=== PATIENT | female | born 1990 | race Caucasian/White ===

== ENCOUNTER 2023-12-01 08:06 | Emergency (ER) | payer SELFPAY ==
[2023-12-01 08:46] LABS: APPEARANCE,URINE CLEAR; BILIRUBIN,URINE NEGATIVE (NEGATIVE); COLOR,URINE YELLOW; GLUCOSE,URINE NEGATIVE (NEGATIVE); KETONES,URINE NEGATIVE (NEGATIVE); LEUKOCYTE ESTERASE,URINE NEGATIVE (NEGATIVE); NITRITE,URINE NEGATIVE (NEGATIVE); OCCULT BLOOD,URINE NEGATIVE (NEGATIVE); PROTEIN,URINE NEGATIVE (NEGATIVE)
[2023-12-01 08:55] LABS: RBC,URINE 0-1 (0-2/HPF)
[2023-12-01 08:56] LABS: BACTERIA,URINE 1+ (NEGATIVE); EPITHELIAL CELLS,URINE FEW (NONE-FEW); WBC,URINE 0-1 (0-5/HPF)
[2023-12-01 09:10] LABS: CORONAVIRUS COVID-19 NAA NEGATIVE (NEGATIVE); INFLUENZA A NAA NEGATIVE (NEGATIVE); INFLUENZA B NAA NEGATIVE (NEGATIVE); RESPIRATORY SYNCYTIAL VIR NAA NEGATIVE (NEGATIVE)
[2023-12-01] MEDS: Metoclopramide 10 MG/2 ML SDV IVPUSH ONE (10:36)
[2023-12-01] MEDS: Sodium Chloride 0.9% 10 ML Syringe FLUSH PRN (10:36)
[2023-12-01] MEDS: Sodium Chloride 0.9% 2.5 ML Syringe FLUSH PRN (10:36)
[2023-12-01] MEDS: Sodium Chloride 0.9% 1,000 ML IV ONE (10:36)
== END 2023-12-01 12:05 | disposition home or self-care (01) ==
LOC: MW.ED 08:06
DX: O20.9 Hemorrhage in early pregnancy, unspecified (principal); O98.511 Other viral diseases complicating pregnancy, first trimester; B34.9 Viral infection, unspecified; Z3A.01 Less than 8 weeks gestation of pregnancy
CPT/HCPCS: 0241U; 36415; 76801; 81001; 84702; 86900; 86901; 87086; 96361; 96374; 99284; J2765; J3490; J7030

== ENCOUNTER 2024-01-25 08:05 | Day surgery (SDC) | payer BC, MEDICAID ==
[~2024-01-25 08:05] MED LIST: Sodium Chloride 0.9% 10 ML Syringe FLUSH PRN; Sodium Chloride 0.9% 2.5 ML Syringe FLUSH PRN; Sodium Chloride 0.9% 20 ML SDV IV PRN; ceFAZolin 2 GM in Sodium Chloride 0.9% 50 ML IV ONE
[2024-01-25 08:28] LABS: HEMOGLOBIN 13.3 g/dL (12.0-16.0); MEAN CORPUSCULAR HEMOGLOBIN 31.4 pg (28.0-32.0); MEAN CORPUSCULAR VOLUME 89.6 fL (83.0-99.0); MEAN PLATELET VOLUME 11.9 fL (9.4-12.3); PLATELET COUNT,PLT 174 K/uL (150-400); RED BLOOD CELL COUNT 4.24 M/uL (4.10-5.30); WHITE BLOOD CELL COUNT,WBC 6.72 K/uL (3.9-11.3)
[2024-01-25] MEDS: Lactated Ringers 1,000 ML IV SCH (08:53)
[2024-01-25] MEDS ORDERED: fentaNYL 100 MCG/2 ML SDV ONE (09:12)
[2024-01-25] MEDS ORDERED: Ondansetron 4 MG/2 ML SDV ONE (09:27)
[2024-01-25] MEDS ORDERED: Ketamine HCL/NACL, ISO-OSM 50 MG/5 ML Syringe ONE (09:55)
== END 2024-01-25 11:00 | disposition home or self-care (01) ==
LOC: MW.SDS 08:05
PROVIDERS: ATTEND Obstetrics & Gynecology
DX: N88.3 Incompetence of cervix uteri (principal); F41.9 Anxiety disorder, unspecified; F17.290 Nicotine dependence, other tobacco product, uncomplicated; Z79.899 Other long term (current) drug therapy
CPT/HCPCS: 36415; 59320; 85027; J0131; J2405; J3010; J7120; J3490

== ENCOUNTER 2024-04-17 09:48 | Observation (INO) | payer BC, MEDICAID ==
[2024-04-17] MEDS: Betamethasone Acetate/Betamethasone Sod Phosphate 6 MG/1 ML MDV IM ONE (11:28)
[2024-04-17 12:45] LABS: CANDIDA DNA PROBE NEGATIVE (NEGATIVE); GARDNERELLA DNA PROBE NEGATIVE (NEGATIVE); TRICHOMONAS DNA PROBE NEGATIVE (NEGATIVE)
== END 2024-04-18 07:10 | disposition home or self-care (01) ==
LOC: MW.OBCHECK 09:48 → MW.OB 09:51 → MW.OBCHECK 10:40 → MW.OB 18:54 → MW.OBCHECK 04-18 06:08
PROVIDERS: ADMIT Obstetrics & Gynecology; ATTEND Obstetrics & Gynecology
DX: O32.1XX0 Maternal care for breech presentation, not applicable or unspecified (principal); O34.32 Maternal care for cervical incompetence, second trimester; O34.42 Maternal care for other abnormalities of cervix, second trimester; O99.212 Obesity complicating pregnancy, second trimester; E66.8 Other obesity; O09.292 Supervision of pregnancy with other poor reproductive or obstetric history, second trimester; O44.51 Low lying placenta with hemorrhage, first trimester
CPT/HCPCS: 59025; 76815; 76817; 87480; 87510; 87660; G0378; J0702

== ENCOUNTER 2025-04-19 16:11 | Emergency (ER) | payer BC ==
[2025-04-19] MEDS ORDERED: Sodium Chloride 0.9% 10 ML Syringe FLUSH PRN (17:02)
[2025-04-19] MEDS ORDERED: Sodium Chloride 0.9% 2.5 ML Syringe FLUSH PRN (17:02)
[2025-04-19 17:18] LABS: APPEARANCE,URINE CLEAR; GLUCOSE,URINE NEGATIVE (NEGATIVE); OCCULT BLOOD,URINE MODERATE (NEGATIVE)
[2025-04-19 17:25] LABS: EPITHELIAL CELLS,URINE FEW (NONE-FEW)
[2025-04-19 17:36] LABS: BASOPHILS ABSOLUTE AUTO 0.05 K/uL (0.00-0.20); BASOPHILS PERCENT AUTO 0.5 % (0.0-1.0); EOSINOPHILS ABSOLUTE AUTO 0.14 K/uL (0.00-0.45); EOSINOPHILS PERCENT AUTO 1.5 % (0.0-6.0); IMMATURE GRAN ABSOLUTE AUTO 0.02 K/uL (0.00-0.05); IMMATURE GRAN PERCENT AUTO 0.2 % (0.0-0.4); LYMPHOCYTES ABSOLUTE AUTO 2.00 K/uL (1.00-4.80); LYMPHOCYTES PERCENT AUTO 21.9 % (24.0-44.0); MEAN PLATELET VOLUME 12.0 fL (9.4-12.3); MONOCYTES ABSOLUTE AUTO 0.68 K/uL (0.00-0.80); MONOCYTES PERCENT AUTO 7.4 % (0.0-8.0); NEUTROPHILS ABSOLUTE AUTO 6.26 K/uL (1.80-7.70); NEUTROPHILS PERCENT AUTO 68.5 % (41.0-71.0); NRBC ABSOLUTE 0.00 K/uL (0.00-0.02); NRBC PERCENT 0.0 /100WBC (0.0-0.2); PLATELET COUNT,PLT 247 K/uL (150-400); RED BLOOD CELL COUNT 4.38 M/uL (4.10-5.30); WHITE BLOOD CELL COUNT,WBC 9.15 K/uL (3.9-11.3)
[2025-04-19 17:56] LABS: BLOOD UREA NITROGEN,BUN 15.0 mg/dL (7.0-18.0); CARBON DIOXIDE,CO2 25.6 mmol/L (21.0-32.0); CHLORIDE,CL 103.0 mmol/L (98-107); CREATININE 0.8 mg/dL (0.6-1.0); EST CRCL DRUG DOSING (CG) 105.51 mL/min; GLUCOSE RANDOM 90.0 mg/dL (74-106); POTASSIUM,K 3.8 mmol/L (3.5-5.1); SODIUM,NA 139.0 mmol/L (136-145)
[2025-04-19 18:00] LABS: ESTIMATED GFR 100.0 mL/min (>60)
[2025-04-19] MEDS: Ketorolac 30 MG/ML SDV IVPUSH ONE (19:26)
== END 2025-04-19 19:34 | disposition home or self-care (01) ==
LOC: MW.ED 16:11
DX: S39.91XA Unspecified injury of abdomen, initial encounter (principal); Z91.048 Other nonmedicinal substance allergy status; Z91.041 Radiographic dye allergy status; Z79.899 Other long term (current) drug therapy; Z90.710 Acquired absence of both cervix and uterus; W18.39XA Other fall on same level, initial encounter; Y93.89 Activity, other specified
CPT/HCPCS: 36415; 74176; 80048; 81001; 85025; 96374; 96375; 99284; J1885; J2270; J7030; 99282